=== PATIENT | female | born 1950 | race Caucasian/White ===

== ENCOUNTER 2016-12-05 15:53 | Emergency (ER) | payer SELFPAY ==
[2016-12-05 16:03] VITALS: BP 124/74
--- NOTE | 2016-12-05 16:32 | ED ---
Respiratory - HPI Summary HPI Summary: 66 yr old with coughing intermittently for past couple weeks. non productive. Initially had a runny nose and sinus congestion and now does not. She has coughing that is persistent. denies fever, denies chest pain. Denies sob. No other complaints. - History of Current Complaint Chief Complaint: UCRespiratory Stated Complaint: COUGH Time Seen by Provider: 12/05/16 16:06 - Allergy/Home Medications Allergies/Adverse Reactions: Allergies Allergy/AdvReac Type Severity Reaction Status Date / Time No Known Allergies Allergy Verified 12/05/16 16:02 PMH/Surg Hx/FS Hx/Imm Hx Previously Healthy: Yes - Surgical History Surgery Procedure, Year, and Place: HYSTERECTOMY. DENTAL EXTRACTIONS Infectious Disease History: No Infectious Disease History: Denies: Traveled Outside the [place] in Last 30 Days - Family History Known Family History: Positive: None - Social History Alcohol Use: None Substance Use Type: Reports: None Smoking Status (MU): Never Smoked Tobacco Have You Smoked in the Last Year: No Review of Systems Constitutional: Negative Positive: Cough All Other Systems Reviewed And Are Negative: Yes Physical Exam Triage Information Reviewed: Yes Vital Signs On Initial Exam: Initial Vitals Temp Pulse Resp BP Pulse Ox 98.3 F 79 18 124/74 99 12/05/16 15:58 12/05/16 15:58 12/05/16 15:58 12/05/16 15:58 12/05/16 15:58 Vital Signs Reviewed: Yes Appearance: Positive: Well-Appearing, No Pain Distress Skin: Positive: Skin Color Reflects Adequate Perfusion Head/Face: Positive: Normal Head/Face Inspection Eyes: Positive: EOMI ENT: Positive: Pharynx normal, TMs normal Neck: Positive: Nontender Respiratory/Lung Sounds: Positive: Clear to Auscultation, Breath Sounds Present Cardiovascular: Positive: RRR. Negative: Murmur Abdomen Description: Positive: Nontender Musculoskeletal: Positive: Strength/ROM Intact Neurological: Positive: Sensory/Motor Intact, Alert, Oriented to Person Place, Time, CN Intact II-III Psychiatric: Positive: Normal - Jordana Coma Scale Best Eye Response: 4 - Spontaneous Best Motor Response: 6 - Obeys Commands Best Verbal Response: 5 - Oriented Diagnostics - Vital Signs Vital Signs Temp Pulse Resp BP Pulse Ox 12/05/16 15:58 98.3 F 79 18 124/74 99 - Laboratory Lab Statement: Any lab studies that have been ordered have been reviewed, and results considered in the medical decision making process. - Radiology chest Xray Interpretation: No Acute Changes Radiology Interpretation Completed By: Radiologist Disposition - Course Course Of Treatment: 66 yr old female with no infiltrates but coughing. Chest xray negative. Rx with albuterol MDI - Diagnoses Provider Diagnoses: Acute bronchitis Discharge - Discharge Plan Condition: Good Disposition: HOME Prescriptions: Albuterol HFA INHALER* [Ventolin HFA Inhaler*] 1 - 2 puff INH Q6H PRN #1 mdi PRN Reason: Cough Prednisone 20 mg PO DAILY #4 tab Patient Education Materials: Acute Bronchitis (ED) Referrals: Dm Ko MD [Primary Care Provider] - 2 Days
--- NOTE | 2016-12-05 16:42 | RAD ---
INDICATION: Chest pain COMPARISON: None TECHNIQUE: PA and lateral dual-energy views were obtained. FINDINGS: Bones/Soft Tissues: There are no acute bony findings. Cardiomediastinal: The cardiomediastinal silhouette is normal. Lungs: There are no infiltrates. There is mild hyperinflation. Pleura: There are no pleural effusions. Other: None IMPRESSION: MILD HYPERINFLATION. NO FOCAL INFILTRATES.
== END 2016-12-05 17:01 | disposition home or self-care (01) ==
LOC: UCCORT 15:53
DX: J20.9 Acute bronchitis, unspecified (principal)
CPT/HCPCS: 71020; 99212; G0463

== ENCOUNTER 2017-12-11 11:42 | Emergency (ER) | payer OTHER ==
[2017-12-11 12:17] VITALS: BP 117/68
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
--- NOTE | 2017-12-11 13:28 | RAD ---
Indication: Left elbow pain. 2 views of left elbow demonstrates no fracture. No other bone or joint abnormality is identified. IMPRESSION: No fracture of left elbow is noted.
--- NOTE | 2017-12-11 13:29 | RAD ---
Indication: Left shoulder pain. 3 views of left shoulder demonstrates no fracture. No other bone or joint abnormality is identified. IMPRESSION: No fracture of the left shoulder is noted.
== END 2017-12-11 13:40 | disposition home or self-care (01) ==
LOC: UCCORT 11:42
DX: S70.02XA Contusion of left hip, initial encounter (principal); S40.012A Contusion of left shoulder, initial encounter; S50.02XA Contusion of left elbow, initial encounter; V03.90XA Pedestrian on foot injured in collision with car, pick-up truck or van, unspecified whether traffic or nontraffic accident, initial encounter; Y92.9 Unspecified place or not applicable
CPT/HCPCS: 99212; G0463